=== PATIENT | male | born 1985 | race Asian ===

== ENCOUNTER 2020-10-19 10:45 | Outpatient (REF) | payer OTHER, SELFPAY ==
[2020-10-19 12:00] LABS: Hematocrit 40.9 % (42-52); Hemoglobin 13.8 g/dl (14.0-18.0); Mean Corpuscular HGB Conc 33.7 g/dl (31.0-36.0); Mean Corpuscular Hemoglobin 30.3 pg (27.0-33.0); Mean Corpuscular Volume 89.9 fL (80-98); Mean Platelet Volume 8.9 fL (9.4-12.4); Platelet Count 336 X10*3/uL (160-400); Red Blood Count 4.55 X10*6/uL (4.60-5.80); Red Cell Distribution Width 13.2 % (11.0-16.0); White Blood Count 5.4 X10*3/uL (4.8-10.8)
[2020-10-19 12:15] LABS: Alanine Aminotransferase 44 U/L (0-40); Albumin Level 4.7 g/dL (3.5-5.0); Alkaline Phosphatase 53 U/L (39-117); Anion Gap 14 (12-20); Aspartate Amino Transferase 32 U/L (5-37); Bilirubin Direct 0.4 mg/dL (0.0-0.5); Bilirubin Total 1.2 mg/dL (0.0-1.0); Blood Urea Nitrogen 10 mg/dL (9-16); Carbon Dioxide 26 mmol/L (22-29); Chloride 104 mmol/L (96-108); Cholesterol 159 mg/dL; Estimated Glomerular Filt Rate > 60; Glucose Random 87 mg/dL (60-115); HDL Cholesterol 53 mg/dL; LDL Cholesterol Calculated 94 mg/dl; Potassium 4.7 mmol/L (3.3-5.1); Sodium 139 mmol/L (135-145); Total Protein 7.8 g/dL (6.5-8.0); Triglycerides 61 mg/dL
[2020-10-19 12:20] LABS: Appearance Urine CLEAR; Color Urine YELLOW; Glucose Urine UA NEG (NEG); Leukocyte Esterase Urine NEG (NEG); Nitrite Urine NEG (NEG); PH 7.5 (5.0-8.0); Specific Gravity - Urine 1.015 (1.005-1.025); Urine Blood NEG (NEG); Urine Ketones NEG (NEG); Urine Protein NEG (NEG-TRACE)
[2020-10-19 12:41] LABS: Thyroid Stimulating Hormone 1.72 uIU/mL (0.32-4.0)
[2020-10-23 12:42] LABS: Vitamin D 25-OH, D2 <4 ng/mL; Vitamin D 25-OH, D3 20 ng/mL; Vitamin D 25-OH, Total 20 ng/mL (30-100)
== END 2020-10-19 10:46 | disposition home or self-care (01) ==
LOC: HO.LAB 10:45
PROVIDERS: PCP Internal Medicine; Visit Provider Internal Medicine
DX: G43.109 Migraine with aura, not intractable, without status migrainosus (principal)
CPT/HCPCS: 36415; 80048; 80061; 80076; 81003; 82306; 84443; 85027

== ENCOUNTER 2022-08-26 09:25 | Emergency (ER) | payer OTHER, SELFPAY ==
--- NOTE | 2022-08-26 | ECG_ITS ---
Test Reason : CHEST PAIN Blood Pressure : / mmHG Vent. Rate : 069 BPM Atrial Rate : 069 BPM P-R Int : 144 ms QRS Dur : 084 ms QT Int : 374 ms P-R-T Axes : 077 086 070 degrees QTc Int : 400 ms Normal sinus rhythm with sinus arrhythmia Normal ECG No previous ECGs available Referred By: Madai Kelly Electronically Signed By:Matt Richardson
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
[2022-08-26 09:44] VITALS: BP 127/70; PULSE 91; RESP 16; TEMP 36.3; O2SAT 98; BMI 19.2
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
[2022-08-26 11:25] VITALS: BP 103/65; PULSE 66; RESP 16; TEMP 36.7; O2SAT 99
--- NOTE | 2022-08-26 11:26 | PC.NURSE ---
vss, pt verbalizing no change in pain level, resting comfortably with the lights dimmed.
== END 2022-08-26 12:41 | disposition home or self-care (01) ==
PROVIDERS: Emergency Provider Emergency Medicine; PCP Internal Medicine
DX: M94.0 Chondrocostal junction syndrome [Tietze] (principal)
CPT/HCPCS: 71101; 93005; 99283; 99284

== ENCOUNTER → 2022-08-26 10:30 | Outpatient (BNV) | payer OTHER, SELFPAY | PROVIDERS: Emergency Provider Emergency Medicine; PCP Internal Medicine; Visit Provider Internal Medicine Cardiovascular Disease | DX: R07.9 Chest pain, unspecified (principal) | CPT/HCPCS: 93010 ==